=== PATIENT | male | born 1945 | race Caucasian/White ===

== ENCOUNTER 2021-12-21 13:19 | Emergency (ER) | payer MEDICARE, BC ==
[~2021-12-21] VITALS: Ht 172.7 cm; Wt 100.7 kg
--- NOTE | 2021-12-21 13:25 | NUR ---
KENIA 83 FROM HOME; FAMILY STATED THAT PT HAS BEEN "LETHARGIC/ALTERED" W/ LKWT AT AROUND 1000AM TODAY. TO ER BED 6. ATTACHED TO MONITOR. PT RESPONSIVE, OPENS EYES, WHEN CALLED BY HIS NAME.
[2021-12-21 14:13] LABS: BASOPHILS % (AUTO) 0.2 % (0.0-2.0); EOSINOPHILS % (AUTO) 0.4 % (0.0-6.0); HEMATOCRIT 48 % (39-51); HEMOGLOBIN 15.5 g/dL (13.5-17.5); LYMPHOCYTES # (AUTO) 1.2 K/uL (0.8-4.8); LYMPHOCYTES % (AUTO) 6.7 % (20.0-44.0); MEAN CORPUSCULAR HGB CONC 33 g/dl (31.0-36.0); MEAN CORPUSCULAR VOLUME 88 fL (80-96); MONOCYTES # (AUTO) 1.1 K/uL (0.1-1.30); MONOCYTES % (AUTO) 6.4 % (2.0-12.0); NEUTROPHILS % (AUTO) 86.3 % (43.0-81.0); PLATELET COUNT (AUTO) 154 K/uL (150-450); RED BLOOD CELL COUNT(AUTO) 5.45 MIL/uL (4.5-6.0); WHITE BLOOD COUNT (AUTO) 17.3 K/uL (4.3-11.0)
[2021-12-21 14:28] LABS: CALCIUM, SERUM 9.6 mg/dL (8.5-10.1); CARBON DIOXIDE 28 mmol/L (21-32); CHLORIDE 103 mmol/L (98-107); CREATININE 1.1 mg/dL (0.6-1.3); GLUCOSE 178 mg/dL (74-106); POTASSIUM 3.8 mmol/L (3.5-5.1); SODIUM SERUM 137 mmol/L (136-145); UREA NITROGEN, BLOOD 18 mg/dL (7-18)
[2021-12-21 14:34] LABS: ALANINE AMINOTRANSFERASE 28 U/L (12-78); ALBUMIN 4.4 g/dL (3.4-5.0); ALKALINE PHOSPHATASE 51 U/L (46-116); ASPARTATE AMINOTRANSFERASE 18 U/L (15-37); BILIRUBIN,DIRECT 0.1 mg/dL (0.0-0.2); BILIRUBIN,TOTAL 0.4 mg/dL (0.2-1.0); TOTAL PROTEIN, SERUM 7.6 g/dL (6.4-8.2)
--- NOTE | 2021-12-21 14:52 | NUR ---
COVID SWAB COLLECTED AND SENT TO LAB
[2021-12-21] MEDS ORDERED: GLUC100017 PO (15:00)
[2021-12-21] MEDS ORDERED: METF-442 PO (15:00)
[2021-12-21] MEDS ORDERED: ASPI-1169 PO (15:00)
[2021-12-21] MEDS ORDERED: ASCO-352 PO (15:00)
[2021-12-21] MEDS ORDERED: SITA100T PO (15:00)
[2021-12-21] MEDS ORDERED: MINO60SO TP (15:00)
[2021-12-21] MEDS ORDERED: TEST1.257 TD (15:00)
[2021-12-21] MEDS ORDERED: TEST200V3 IM (15:00)
[2021-12-21] MEDS ORDERED: TAMS-12 PO (15:00)
[2021-12-21] MEDS ORDERED: OMEG12002 PO (15:00)
[2021-12-21] MEDS ORDERED: ROSU20TA32 PO (15:00)
[2021-12-21] MEDS ORDERED: FINA5TAB11 PO (15:00)
[2021-12-21] MEDS ORDERED: CALC1TAB30 PO (15:00)
[2021-12-21 15:09] LABS: THYROID STIMULATING HORMONE 2.128 uIU/mL (0.358-3.74)
[2021-12-21] MEDS ORDERED: hydrALAZINE HCL IV 20 MG VIAL ONE (15:15)
--- NOTE | 2021-12-21 15:22 | NUR ---
received a call from Edwin ([facility]) and said to fax facesheet, covid result, and clinicals once ready. , phone number [phone]. [facility] ETA 1 hour.
--- NOTE | 2021-12-21 15:24 | NUR ---
PT ARRIVED WITH IV ON L AC 18G. 2 ADDITIONAL IVS ESTABLISHED ON R AC 20G AND L FA 18G.
[2021-12-21] MEDS ORDERED: LEVETIRACETAM (500MG) 500 MG in IV NS 0.9% 100 ML IV ONE (15:30)
[2021-12-21] MEDS ORDERED: NICARDIPINE IN NACL, ISO-OSM 200 ML IV PRN (15:30)
[2021-12-21] MEDS ORDERED: LEVETIRACETAM (500MG) 500 MG in IV NS 0.9% 100 ML IV SCH (15:30)
[2021-12-21] MEDS ORDERED: hydrALAZINE HCL IV 20 MG VIAL IV ONE ×2 (15:30→17:00)
[2021-12-21] MEDS ORDERED: NICARDIPINE IN NACL, ISO-OSM 200 ML IV ONE (15:30)
--- NOTE | 2021-12-21 15:40 | NUR ---
BP-164/89, HR-57. NICARDIPINE DRIP STARTED AT 5MG/HR LFA #18.
[2021-12-21 15:45] LABS: ALCOHOL, BLOOD < 3 mg/dL (0-0)
--- NOTE | 2021-12-21 16:00 | NUR ---
BP-167/90, HR-78; NICARDIPINE DRIP TITRATED TO 10MG/HR.
--- NOTE | 2021-12-21 16:03 | NUR ---
URINE SAMPLE COLLECTED AND SENT TO LAB
--- NOTE | 2021-12-21 16:15 | NUR ---
CALL FROM [facility] WITH INFO ACCEPTED BY DR JACKSON TO ICU ROOM 4519 BED 1,REPORT TO BE CALLED TO [phone]
--- NOTE | 2021-12-21 16:15 | NUR ---
BP-161/88, HR-78; NICARDIPINE DRIP MAINTAINED AT 10MG/HR.
--- NOTE | 2021-12-21 16:27 | NUR ---
FAXED MOVE PACKET TO [facility]
[2021-12-21 16:30] VITALS: BP 158/85
--- NOTE | 2021-12-21 16:30 | NUR ---
BP-158/85, HR-74; NICARDIPINE DRIP MAINTAINED AT 10MG/HR
[2021-12-21 16:46] LABS: BILIRUBIN,URINE NEGATIVE (NEGATIVE); COLOR,URINE YELLOW (YELLOW); LEUKOCYTE ESTERASE ,URINE NEGATIVE (NEGATIVE); NITRITE, URINE NEGATIVE (NEGATIVE); PROTEIN,URINE NEGATIVE (NEGATIVE); UGLUCOSE NEGATIVE (NEGATIVE); UROBILINOGEN,URINE 0.2 EU/dL (0.2)
--- NOTE | 2021-12-21 16:47 | NUR ---
CRITICAL CARE TEAM/EMT AT BEDSIDE TO PICKUP PT Addendum: 12/21/21 at 1725 by KEO BEDSIDE ENDORSEMENT GIVEN TO [facility]URSE [facility] APPRAISER. PT PROVIDED W/ NICARDIPINE DRIP.
[2021-12-21 16:49] LABS: BACTERIA,URINE Rare /HPF (None Seen); RBC,URINE 0-2 /HPF (0-2); SQUAMOUS EPITHELIAL CELL,UR Few /HPF (None Seen); WBC,URINE 0-2 /HPF (0-3)
--- NOTE | 2021-12-21 17:01 | NUR ---
PT REPORT GIVEN TO SHUBHAM, ICU BLOOD TESTER FOWL.
== END 2021-12-21 17:00 | disposition short-term general hospital (02) ==
LOC: ER 13:21
DX: I61.5 Nontraumatic intracerebral hemorrhage, intraventricular (principal); R41.0 Disorientation, unspecified; I10 Essential (primary) hypertension; E78.5 Hyperlipidemia, unspecified; N40.0 Benign prostatic hyperplasia without lower urinary tract symptoms; Z79.84 Long term (current) use of oral hypoglycemic drugs; Z79.899 Other long term (current) drug therapy; I45.10 Unspecified right bundle-branch block; D72.829 Elevated white blood cell count, unspecified; E11.65 Type 2 diabetes mellitus with hyperglycemia; G91.9 Hydrocephalus, unspecified; I16.1 Hypertensive emergency; Z20.822 Contact with and (suspected) exposure to COVID-19
CPT/HCPCS: 99291; 96365; 96368; 96375; 93005; 71045; 70450; 85025; 80048; 80076; 81001; 36415; 84443; 84484; 85730; 87081; 82962; 87426; 80143; 80320; 80179; 80307; J0360; J7030; J1953; C9803; G0480